=== PATIENT | female | born 1990 ===

== ENCOUNTER 2018-08-13 02:05 | Emergency (ER) | payer OTHER ==
[~2018-08-13] VITALS: Ht 160 cm; Wt 81.6 kg
[~2018-08-13 02:05] MED LIST: MOTRIN800 MG PO
[2018-08-13] MEDS ORDERED: IPRAT-ALBUT 0.5-3 ML IH (04:29)
[2018-08-13] MEDS ORDERED: MEDROLPACK PO (04:29)
[2018-08-13] MEDS ORDERED: TESSALON PERLE100 M1 PO (04:29)
== END 2018-08-13 04:42 | disposition home or self-care (01) ==
LOC: ER 02:05
DX: J06.9 Acute upper respiratory infection, unspecified (principal)

== ENCOUNTER 2019-09-05 18:50 | Emergency (ER) | payer OTHER ==
[~2019-09-05] VITALS: Ht 157.5 cm; Wt 82.1 kg
[~2019-09-05 18:50] MED LIST changes: +IPRAT-ALBUT 0.5-3 ML IH; +MEDROLPACK PO; +TESSALON PERLE100 M1 PO
== END 2019-09-05 23:27 | disposition home or self-care (01) ==
LOC: ER 18:50
DX: J45.998 Other asthma (principal); B34.9 Viral infection, unspecified